=== PATIENT | female | born 1930 | race Caucasian/White ===

== ENCOUNTER 2016-12-26 10:49 | Observation (INO) | payer MEDICARE ==
[~2016-12-26] VITALS: Ht 170.2 cm; Wt 75.0 kg
[2016-12-26 10:59] VITALS: BP 235/101; PULSE 64; RESP 24; O2SAT 100
--- NOTE | 2016-12-26 11:15 | PD ---
HPI Chief Complaint: Flank/Kidney Pain Time Seen by Provider: 14:38 Travel History International Travel<30 days: No Contact w/Intl Traveler<30days: No Traveled to known affect area: No History of Present Illness HPI 86- year old female brought to the ED by EVAC complaining of right sided abdominal pain. The patient went to [facility] yesterday where she was diagnosed with a right kidney stone. She reports the pain is a 10/10, radiates to the back , and it is a sharp pain. She denies any nausea, vomiting, diarrhea, fevers, chills, or headaches. She reports that she feels more distended than usual and her last bowel movement was yesterday. She denies any drugs, alcohol, or smoking. The patient received 4 mg of morphine en route to the hospital. The patient is unsure of her medical history but states that she has HTN, and possibly HLD. PFSH Past Medical History Diminished Hearing: No Hypertension: Yes Tetanus Vaccination: > 5 Years Influenza Vaccination: Yes : 3 Para: 3 Miscarriage: 0 : 0 Past Surgical History Eye Surgery: Yes Social History Alcohol Use: No Tobacco Use: No Substance Use: No Allergies-Medications (Allergen,Severity, Reaction): Coded Allergies: No Known Allergies (Unverified , 12/26/16) Reported Meds & Prescriptions Reported Meds & Active Scripts Active Review of Systems General / Constitutional: No: Fever, Chills, Weight Gain, Weight Loss, Other Eyes: No: Diploplia, Blurred Vision, Photophobia, Drainage, Redness, Foreign Body Sensation, Pain, Tearing, Blind Spots, Visual changes, Blindness, Other HENT: No: Headaches, Vertigo, Lightheadedness, Sore Throat, Rhinitis, Rhinorrhea, Congestion, Nosebleed, Neck Stiffness, Neck Pain, Masses, Gingival Bleeding, Dental Difficulties, Ear Discharge, Earache, Other Cardiovascular: No: Chest Pain or Discomfort, Palpitations, Irregular Rhythm, Tachycardia, Diaphoresis, Syncope, Dyspnea on exertion, Varicosities, Edema, Cyanosis, Varicosities, Phlebitis, Claudication, Other Respiratory: No: Cough, Shortness of Breath, Wheezing, Sneezing, Orthopnea, Hemoptysis, Stridor, Night Sweats, Pleuritic Pain, Other Gastrointestinal: Positive: Abdominal Pain, No: Nausea, Vomiting, Diarrhea, Hematemesis, Hematochezia, Constipation, Changes in Bowel Habits, Indigestion, Dysphagia, Loss of Appetite, Other Genitourinary: No: Urgency, Frequency, Dysuria, Nocturia, Hematuria, Decreased Urinary Output, Oliguria, Hesitancy, Dribbling, Incontinence, Pelvic Pain, Flank Pain, Dyspareunia, Discharge, Dysmenorrhea, Menorrhagia, Metorrhagia, Vaginal Bleeding, Other Musculoskeletal: Positive: Myalgias (bilateral lower back pain, right worse than left ), No: Arthralgias, Limited ROM, Weakness, Cramping, Edema, Pain, Atrophy, Other Skin: No Rash, No Itching, No Dryness, No Lumps, No Hives, No Change in Pigmentation, No Change in nails, No Alopecia, No Lesions, No Breast Lumps, No Breast Tenderness, No Breast Swelling, No Other Neurologic: No: Weakness, Dizziness, Syncope, Focal Abnormalities, Coordination Problem, Tremor, Ataxia, Headache, Change in Mentation, Slurred Speech, Paresthesia, Incontinence, Seizures, Sensory Disturbance, Other Psychiatric: No: Anxiety, Depression, Suicidal Ideations, Disorder of Thought, Mood Disorder, Substance Abuse, Homicidal Ideation, Other Endocrine: No: Heat Intolerance, Cold Intolerance, Polyuria, Polydipsia, Other Hematologic/Lymphatic: No: Easy Bruising, Lymph Node Enlargement, Other Physical Exam Exam Limitations: Poor Historian Narrative GENERAL: SKIN: Warm and dry. HEAD: Atraumatic. Normocephalic. EYES: Pupils equal and round. No scleral icterus. No injection or drainage. ENT: No nasal bleeding or discharge. Mucous membranes pink and moist. Tongue is midline. No uvula deviation. NECK: Trachea midline. No JVD. CARDIOVASCULAR: Regular rate and rhythm. No murmurs, S3, S4. RESPIRATORY: No accessory muscle use. Clear to auscultation. Breath sounds equal bilaterally. GASTROINTESTINAL: CVA tenderness bilaterally, right worse than left. Abdomen tender to palpation and distended. Hepatic and splenic margins not palpable. MUSCULOSKELETAL: Extremities without clubbing, cyanosis, or edema. No obvious deformities. Full range of motion of the upper and lower extremities bilaterally. 2+ pulses bilaterally. NEUROLOGICAL: Awake and alert. No obvious cranial nerve deficits. Motor grossly within normal limits. Five out of 5 muscle strength in the arms and legs. Normal speech. PSYCHIATRIC: Appropriate mood and affect; insight and judgment normal. Data Data Last Documented VS Vital Signs Date Time Temp Pulse Resp B/P Pulse Ox O2 Delivery O2 Flow Rate FiO2 12/26/16 15:42 52 16 156/74 99 Room Air 12/26/16 12:02 98.3 Orders Complete Blood Count With Diff (12/26/16 11:02) Basic Metabolic Panel (Bmp) (12/26/16 11:02) Urinalysis - C+S If Indicated (12/26/16 11:02) Iv Access Insert/Monitor (12/26/16 11:02) Ketorolac Inj (Toradol Inj) (12/26/16 11:30) Morphine Inj (Morphine Inj) (12/26/16 11:30) Sodium Chlor 0.9% 1000 Ml Inj (Ns 1000 M (12/26/16 11:20) Lactic Acid (12/26/16 11:22) Ct Abd/Pel W Iv Contrast(Rout) (12/26/16 ) Iodixanol 320 Inj (Rad Ct) (Visipaque 32 (12/26/16 13:39) Ceftriaxone Inj (Rocephin Inj) (12/26/16 14:30) Sodium Chlor 0.9% 1000 Ml Inj (Ns 1000 M (12/26/16 14:32) Admit Order (Ed Use Only) (12/26/16 16:01) Labs Laboratory Tests Test 12/26/16 12/26/16 11:10 11:35 White Blood Count 12.9 TH/MM3 Red Blood Count 4.52 MIL/MM3 Hemoglobin 13.7 GM/DL Hematocrit 38.1 % Mean Corpuscular Volume 84.4 FL Mean Corpuscular Hemoglobin 30.2 PG Mean Corpuscular Hemoglobin 35.8 % Concent Red Cell Distribution Width 13.5 % Platelet Count 232 TH/MM3 Mean Platelet Volume 8.9 FL Neutrophils (%) (Auto) 80.5 % Lymphocytes (%) (Auto) 10.0 % Monocytes (%) (Auto) 7.9 % Eosinophils (%) (Auto) 1.0 % Basophils (%) (Auto) 0.6 % Neutrophils # (Auto) 10.4 TH/MM3 Lymphocytes # (Auto) 1.3 TH/MM3 Monocytes # (Auto) 1.0 TH/MM3 Eosinophils # (Auto) 0.1 TH/MM3 Basophils # (Auto) 0.1 TH/MM3 CBC Comment DIFF FINAL Differential Comment Sodium Level 142 MEQ/L Potassium Level 3.9 MEQ/L Chloride Level 112 MEQ/L Carbon Dioxide Level 22.5 MEQ/L Anion Gap 8 MEQ/L Blood Urea Nitrogen 16 MG/DL Creatinine 1.30 MG/DL Estimat Glomerular Filtration 39 ML/MIN Rate Random Glucose 104 MG/DL Calcium Level 8.3 MG/DL Lactic Acid Level 1.5 mmol/L MDM Medical Decision Making Medical Screen Exam Complete: Yes Emergency Medical Condition: Yes Medical Record Reviewed: Yes Interpretation(s) CBC & BMP Diagram 12/26/16 11:10 LFTs and lipase within normal limits. Last Impressions Abdomen/Pelvis CT 12/26/16 0000 Signed Impressions: Service Date/Time: Thursday, December 26, 2016 13:15 - CONCLUSION: 1. 5.6 mm calculus identified in the distal right ureterovesical junction or adjacent to the orifice within the bladder. 2. Moderate right hydronephrosis. 3. Ruptured collecting system with fluid surrounding the proximal right ureter. 4. Bilateral renal cysts. 5. Bilateral nephrolithiasis. Rosendo Monroy MD Differential Diagnosis Nephrolithiasis Obstruction Pyelonephritis UTI Narrative Course 86-year-old female that presents to the ED for evaluation of right flank pain. Patient was properly examined and was found to have signs and symptoms concerning for possible kidney stone versus obstruction. Patient his been out of good historian she follows that she went to [facility] yesterday but when family came down actually tell us that she was seen at [facility] and was seen twice for the kidney stone apparently second time the CT was negative for kidney stone so but thought that she might have passed it. She is unclear as to what the medication she is taking. Labs and imaging will be done. My attending who agrees with plan. Labs and imaging were unremarkable with exception of slightly elevated white blood cell count as well as a kidney stone on the right side with some hydronephrosis and continues to the collecting system. Case was discussed with my attending Dr. Avila who recommended I speak with Dr. Hairston. I spoke with Dr. Hairston over the phone who reviewed the patient's history as well as CT scan and labs himself and states that for the most part patient should be able to pass this. He recommends better pain control and hydration. The patient cannot tolerate pain or pain is not controlled was cannot tolerate fluids he does recommend admission if so. My attending Dr. Avila evaluated the patient with me and patient still complains of a lot of pain. Unclear of the systems new as patient is not aware of any cysts on her kidney. Family also is not aware of this. Because this patient will be admitted for pain management and further evaluation. DANIELA was paged and Dr. Bailey agrees to obs ADMISSION. Diagnosis Primary Impression: Right nephrolithiasis Additional Impression: Intractable abdominal pain Admitting Information Admitting Physician Requests: Observation Referrals: Ryan Hairston Ricardo PA Dec 26, 2016 11:15 Zelalem Anderson Dec 26, 2016 11:15 No Active Prescriptions or Reported Meds Disposition: DISCHARGE HOME Condition: Stable Zelalem Anderson Dec 26, 2016 11:15
[2016-12-26] MEDS ORDERED: SODIUM CHLOR 0.9% 1000 ML INJ 1,000 ML IV SCH ×2 (11:20→14:32)
[2016-12-26 11:26] LABS: AUTOMATED NEUTROPHIL # 10.4 TH/MM3 (1.8-7.7); BASOPHIL # 0.1 TH/MM3 (0-0.2); BASOPHIL % 0.6 % (0.0-2.0); EOSINOPHIL # 0.1 TH/MM3 (0-0.4); HEMATOCRIT 38.1 % (35.0-46.0); HEMO FLAGS DIFF FINAL; LYMPHOCYTE # 1.3 TH/MM3 (1.0-4.8); MEAN CELL VOLUME 84.4 FL (80.0-100.0); MEAN CORPUSCULAR HEMOGLOBIN 30.2 PG (27.0-34.0); MEAN CORPUSCULAR HGB CONC 35.8 % (32.0-36.0); MONO % 7.9 % (0.0-8.0); NEUT % 80.5 % (16.0-70.0); PLATELET COUNT 232 TH/MM3 (150-450); RED BLOOD COUNT 4.52 MIL/MM3 (4.00-5.30); RED CELL DISTRIBUTION WIDTH 13.5 % (11.6-17.2); WHITE BLOOD COUNT 12.9 TH/MM3 (4.0-11.0)
[2016-12-26] MEDS ORDERED: MORPHINE SULFATE 4 MG/ML INJ IV PUSH ONE (11:30)
[2016-12-26] MEDS ORDERED: KETOROLAC TROMETHAMINE 30 MG/ML (IVP) VIAL IV PUSH ONE (11:30)
[2016-12-26 11:50] LABS: BICARBONATE 22.5 MEQ/L (21.0-32.0)
[2016-12-26 12:02] VITALS: BP 179/77; PULSE 67; RESP 20; TEMP 98.3; O2SAT 98
[2016-12-26 12:18] LABS: POTASSIUM 3.9 MEQ/L (3.5-5.1)
[2016-12-26] MEDS ORDERED: IODIXANOL 320 MG/ML 50 ML VIAL (for Rad CT) IV ONE (13:39)
--- NOTE | 2016-12-26 14:19 | RADRPT ---
EXAM DATE/TIME: 12/26/2016 13:15 [place] COMPARISON: No previous studies available for comparison. INDICATIONS : Diffuse abdomen pain for three days. IV CONTRAST: 50 cc Visipaque (iodixanol) IV ORAL CONTRAST: No oral contrast ingested. RADIATION DOSE: 12.25 CTDIvol (mGy) MEDICAL HISTORY : Hypothyroidism. SURGICAL HISTORY : None. ENCOUNTER: Initial ACUITY: 3 days PAIN SCALE: 8/10 LOCATION: Bilateral lower quadrant TECHNIQUE: Volumetric scanning of the abdomen and pelvis was performed. Using automated exposure control and ad justment of the mA and/or kV according to patient size, radiation dose was kept as low as reasonably achievable to obtain optimal diagnostic quality images. DICOM format image data is available electro nically for review and comparison. FINDINGS: LOWER LUNGS: Mild airspace disease characteristic of atelectasis is seen in the bases. LIVER: Homogeneous density without lesion. There is no dilation of the biliary tree. No calcified gallston es. SPLEEN: Normal size without lesion. PANCREAS: Within normal limits. KIDNEYS: The right kidney is moderately hydronephrotic. 2 cysts are identified in the right kidney. A 13.6 cm cyst is noted off the upper pole. A 2.7 cm cyst is seen in the midpole. 4 mm calculus is evident in t he lower pole. Fluid stranding is identified along the right ureter. This extends to just below the p ancreas in the anterior pararenal space. The ureter below this level is not dilated. The left kidney contains 4 simple cysts. The largest is located off the upper pole and measures 3.6 cm. And 7.8 mm calculus is identified in the midpole on the cortical medullary junction. There is no hydronephrosis or hydroureter. ADRENAL GLANDS: Within normal limits. VASCULAR: There is no aortic aneurysm. BOWEL/MESENTERY: Numerous diverticula are seen in the colon. There are no active inflammatory changes The stomach, sma ll bowel, and colon demonstrate no acute abnormality. There is no free intraperitoneal air or fluid. ABDOMINAL WALL: Within normal limits. RETROPERITONEUM: There is no lymphadenopathy. BLADDER: A 5.6 mm calculus is identified posteriorly within the right side of the urinary bladder. It lies wit hin or adjacent to the ureteral vesicle junction. Bladder is otherwise unremarkable REPRODUCTIVE: Small myometrial mass containing calcification is evident in the left side of the uterine fundus. Adn exa are unremarkable. INGUINAL: There is no lymphadenopathy or hernia. MUSCULOSKELETAL: Postsurgical changes are noted in the lower lumbar spine following fusion. Past degenerative disc dis ease is present. CONCLUSION: 1. 5.6 mm calculus identified in the distal right ureterovesical junction or adjacent to the orifice within the bladder. 2. Moderate right hydronephrosis. 3. Ruptured collecting system with fluid surrounding the proximal right ureter. 4. Bilateral renal cysts. 5. Bilateral nephrolithiasis. Rosendo Monroy MD on December 26, 2016 at 14:06 Board Certified Radiologist. This report was verified electronically.
[2016-12-26] MEDS ORDERED: cefTRIAXone INJ 1,000 MG in SODIUM CHLORIDE 0.9% INJ 100 ML IV ONE (14:30)
[2016-12-26] MEDS ORDERED: BACT800T5 PO (14:56)
[2016-12-26] MEDS ORDERED: KETO10 PO (14:56)
[2016-12-26] MEDS ORDERED: ZOFR4TAB PO (14:56)
[2016-12-26 15:42] VITALS: BP 156/74; PULSE 52; RESP 16; O2SAT 99
--- NOTE | 2016-12-26 16:08 | PD ---
Physical Exam Narrative GENERAL: Well-nourished, well-developed patient. SKIN: Warm and dry. HEAD: Normocephalic and atraumatic. EYES: No injection or drainage. ENT: No nasal drainage noted. NECK: Supple, trachea midline. CARDIOVASCULAR: Regular rate and rhythm RESPIRATORY: No increased effort. No accessory muscle use. GASTROINTESTINAL: Abdomen soft, tender right upper and lower quadrant, nondistended. NEUROLOGICAL: Awake. Moves all extremities. Normal speech. Data Data Last Documented VS Vital Signs Date Time Temp Pulse Resp B/P Pulse Ox O2 Delivery O2 Flow Rate FiO2 12/26/16 15:42 52 16 156/74 99 Room Air 12/26/16 12:02 98.3 Orders Complete Blood Count With Diff (12/26/16 11:02) Basic Metabolic Panel (Bmp) (12/26/16 11:02) Urinalysis - C+S If Indicated (12/26/16 11:02) Iv Access Insert/Monitor (12/26/16 11:02) Ketorolac Inj (Toradol Inj) (12/26/16 11:30) Morphine Inj (Morphine Inj) (12/26/16 11:30) Sodium Chlor 0.9% 1000 Ml Inj (Ns 1000 M (12/26/16 11:20) Lactic Acid (12/26/16 11:22) Ct Abd/Pel W Iv Contrast(Rout) (12/26/16 ) Iodixanol 320 Inj (Rad Ct) (Visipaque 32 (12/26/16 13:39) Ceftriaxone Inj (Rocephin Inj) (12/26/16 14:30) Sodium Chlor 0.9% 1000 Ml Inj (Ns 1000 M (12/26/16 14:32) Admit Order (Ed Use Only) (12/26/16 16:01) Labs Laboratory Tests Test 12/26/16 12/26/16 11:10 11:35 White Blood Count 12.9 TH/MM3 Red Blood Count 4.52 MIL/MM3 Hemoglobin 13.7 GM/DL Hematocrit 38.1 % Mean Corpuscular Volume 84.4 FL Mean Corpuscular Hemoglobin 30.2 PG Mean Corpuscular Hemoglobin 35.8 % Concent Red Cell Distribution Width 13.5 % Platelet Count 232 TH/MM3 Mean Platelet Volume 8.9 FL Neutrophils (%) (Auto) 80.5 % Lymphocytes (%) (Auto) 10.0 % Monocytes (%) (Auto) 7.9 % Eosinophils (%) (Auto) 1.0 % Basophils (%) (Auto) 0.6 % Neutrophils # (Auto) 10.4 TH/MM3 Lymphocytes # (Auto) 1.3 TH/MM3 Monocytes # (Auto) 1.0 TH/MM3 Eosinophils # (Auto) 0.1 TH/MM3 Basophils # (Auto) 0.1 TH/MM3 CBC Comment DIFF FINAL Differential Comment Sodium Level 142 MEQ/L Potassium Level 3.9 MEQ/L Chloride Level 112 MEQ/L Carbon Dioxide Level 22.5 MEQ/L Anion Gap 8 MEQ/L Blood Urea Nitrogen 16 MG/DL Creatinine 1.30 MG/DL Estimat Glomerular Filtration 39 ML/MIN Rate Random Glucose 104 MG/DL Calcium Level 8.3 MG/DL Lactic Acid Level 1.5 mmol/L MDM Supervised Visit with PONCHO: Yes Interpretation(s) CBC & BMP Diagram 12/26/16 11:10 Last 24 hours Impressions Abdomen/Pelvis CT 12/26/16 0000 Signed Impressions: Service Date/Time: Monday, December 26, 2016 13:15 - CONCLUSION: 1. 5.6 mm calculus identified in the distal right ureterovesical junction or adjacent to the orifice within the bladder. 2. Moderate right hydronephrosis. 3. Ruptured collecting system with fluid surrounding the proximal right ureter. 4. Bilateral renal cysts. 5. Bilateral nephrolithiasis. Rosendo Monroy MD Narrative Course I, Dr. lundy, have reviewed the advance practice practitioner's documentation and am in agreement, met with the patient face to face, made the diagnosis, and the medical decision making was done by me. *My assessment and Findings: 86-year-old female presents with right sided abdominal pain. CT shows ureteral stone just at UVJ versus just into bladder with associated [place] and large cyst versus rupture of collecting system. Patient will be admitted for pain control and will work on obtaining records for comparison after discussion with urology Diagnosis Primary Impression: Right nephrolithiasis Additional Impression: Intractable abdominal pain Rosita Lundy MD Dec 26, 2016 16:07
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
[2016-12-26] MEDS: SODIUM CHLOR 0.45% 1000 ML INJ 1,000 ML IV SCH (17:33)
[2016-12-26] MEDS ORDERED: traMADol/ACETAMINOPHEN 37.5/325 1 TAB PO PRN (19:15)
[2016-12-26] MEDS ORDERED: PILL SPLITTER OTHER PRN (19:30)
[2016-12-26 20:29] VITALS: BP 173/77; PULSE 75; RESP 20; TEMP 97.9; O2SAT 98
[2016-12-26] MEDS ORDERED: amLODIPine BESYLATE 5 MG TAB PO ONE (20:45)
[2016-12-26 22:31] VITALS: PULSE 56
[2016-12-26 23:19] VITALS: BP 157/72; PULSE 61; RESP 18; TEMP 97.5; O2SAT 97
[2016-12-26 23:53] LABS: BLOOD, URINE MOD (NEG); COMMENT (UR) CULTURE INDICATED; CULTURE IF INDICATED CULTURE INDICATED; GLUCOSE,URINE NEG (NEG); KETONE, URINE NEG (NEG); MUCUS URINE FEW /lpf (OCC); NITRITE,URINE NEG (NEG); SQUAMOUS EPITHELIAL CELL URINE 3 /hpf (0-5); TRANSITIONAL EPI CELLS, URINE <1 /hpf; URINE COLOR YELLOW (YELLW/STRAW)
[2016-12-27] VITALS (9 sets, daily range): BP systolic 139–189; BP diastolic 40–81; PULSE 53–76; RESP 17–20; TEMP 96.8–98.2; O2SAT 96–98
[2016-12-27] MEDS: SODIUM CHLOR 0.45% 1000 ML INJ 1,000 ML IV SCH ×2 (05:33→14:58)
[2016-12-27 07:08] LABS: POTASSIUM 3.4 MEQ/L (3.5-5.1)
[2016-12-27] MEDS ORDERED: LEVOFLOXACIN 500 MG PREMIX INJ 100 ML IV ONE (08:00)
[2016-12-27] MEDS ORDERED: POTASSIUM CHLORIDE 10 MEQ CONTROLLED RELEASE TAB PO ONE ×2 (08:30→10:45)
[2016-12-27] MEDS ORDERED: amLODIPine BESYLATE 5 MG TAB PO SCH (09:00)
[2016-12-27] MEDS ORDERED: PNEUMOCOCCAL POLYVALENT INJ 25 MCG/0.5 ML SYR IM ONE (10:00)
--- NOTE | 2016-12-27 10:48 | HHI.PR ---
Subjective Remarks patient voiding spontaneously, no dysuria or urgency no flank pain Objective Vitals Vital Signs Date Time Temp Pulse Resp B/P Pulse Ox O2 Delivery O2 Flow Rate FiO2 12/27/16 08:50 96.8 53 20 160/78 96 12/27/16 07:15 57 12/27/16 04:44 97.4 60 20 154/71 97 12/27/16 04:10 76 12/27/16 00:02 56 12/26/16 23:19 97.5 61 18 157/72 97 12/26/16 22:31 56 12/26/16 20:29 97.9 75 20 173/77 98 12/26/16 15:42 52 16 156/74 99 Room Air 12/26/16 12:58 20 12/26/16 12:05 20 12/26/16 12:02 98.3 67 20 179/77 98 Room Air 12/26/16 10:59 64 24 235/101 100 I/O 12/26/16 12/26/16 12/26/16 12/27/16 12/27/16 12/27/16 07:00 15:00 23:00 07:00 15:00 23:00 Intake Total 400 ml Balance 400 ml Intake Oral 400 ml # Voids 1 2 Result Diagram: 12/26/16 1110 12/27/16 0531 Imaging Last Impressions Abdomen/Pelvis CT 12/26/16 0000 Signed Impressions: Service Date/Time: Monday, December 26, 2016 13:15 - CONCLUSION: 1. 5.6 mm calculus identified in the distal right ureterovesical junction or adjacent to the orifice within the bladder. 2. Moderate right hydronephrosis. 3. Ruptured collecting system with fluid surrounding the proximal right ureter. 4. Bilateral renal cysts. 5. Bilateral nephrolithiasis. Rosendo Monroy MD Objective Remarks awake and alert, oriented x 3, NAD anicteric lungs clear regular rhythm abodmen soft, nontender, nl CVA tenderness extremities no edema A/P Assessment and Plan 86 yo female with a PMHX significant for HTN who presents to [facility] with complaints of right sided flank pain found to have 5.6mm calculus distal right ureterovesical junction and moderate hydronephrosis. Obstructive Uropathy - right UPJ stone 5.6 mm with marked right hydronephrosis by history - recurrent- per patient -does not recall passing out stones clinically though Imaging study shows distal right UPJ stone with hydronephrosis and ruptured collecting duct system pain management prn strain urine- and send stone for analysis if passed continue IV fluids Urology consult- evaluate for stent placement- with above findings- with increasing creatinine TORITO secondary to Obstructive nephropathy Hypokalemia avoid nephrotoxic agents creatinine slightly up- continue IVF with KCL am labs to monitor trend UTI- Leukocytosis ff final C and S on Levaquin am labs to monitor Hypertension started on amlodipine Monitor BP. pain control Hyperuricemia start allopurinol 100 mg po daily DVT prophylaxis bilateral SCD/ARIELLE Adeola Cordon MD Dec 27, 2016 10:48
[2016-12-27] MEDS: D5-NS + KCL 20 MEQ INJ 1,000 ML IV SCH (16:20)
[2016-12-28 00:18] VITALS: BP 181/80; PULSE 65; RESP 17
[2016-12-28] MEDS: D5-NS + KCL 20 MEQ INJ 1,000 ML IV SCH ×2 (00:26→08:00)
[2016-12-28] MEDS ORDERED: amLODIPine BESYLATE 5 MG TAB PO ONE (00:45)
[2016-12-28 04:01] VITALS: BP 169/71; PULSE 63; RESP 17; TEMP 97.9
[2016-12-28 04:41] VITALS: O2SAT 98
[2016-12-28] MEDS ORDERED: amLODIPine BESYLATE 5 MG TAB PO SCH (08:00)
[2016-12-28] MEDS ORDERED: LEVOFLOXACIN 250 MG PREMIX INJ 50 ML IV SCH (08:00)
[2016-12-28 08:38] VITALS: BP 183/79; PULSE 63; RESP 20; TEMP 97.8; O2SAT 96
[2016-12-28] MEDS ORDERED: ALLOPURINOL 100 MG TAB PO SCH (09:00)
--- NOTE | 2016-12-28 10:00 | MB ---
cc: YOLIS HORNE DATE OF CONSULTATION: 12/28/2016 HISTORY OF PRESENT ILLNESS Ms. Recinos is a pleasant 86-year-old female who presents with right-sided flank pain. She was seen a few days ago in another hospital and she was told that she had a UVJ stone on the right side which would probably pass on its own. CT scan was done in our emergency room demonstrating 5-6 mm calculus at the distal right ureteral junction with moderate hydronephrosis. Her pain was moderate at the time and she had no fever or chills. She denies any prior past history of stones. PAST MEDICAL HISTORY Her medical history is notable for hypertension. PAST SURGICAL HISTORY Noted for plastic facial reconstructive surgery in the past. ALLERGIES She denies any allergies. FAMILY HISTORY Family history is notable for heart disease on her father's side. SOCIAL HISTORY She drinks socially. Denies any drug use and did smoke in the past. REVIEW OF SYSTEMS She denies chest pain. She denies shortness of breath. She denies fever. She denies chills. She does note intermittent right flank pain. She denies diarrhea or constipation. She denies any bleeding disorders. She denies any gait disturbances. Denies any skin lesions or rashes. Denies any psychological history. Denies fever or chills. All other systems reviewed and are negative. PHYSICAL EXAMINATION VITAL SIGNS: Presently temperature is 97.8, heart rate 63, respiratory rate 20, 183/79 is her blood pressure. GENERAL: She is a well-developed, well-nourished 86-year-old female in no acute distress. HEENT: Normocephalic, atraumatic. Pupils equal, round, reactive to light. Extraocular movements intact. NECK: Neck is supple. HEART: Regular rate and rhythm. LUNGS: Clear. ABDOMEN: Soft, nontender, nondistended. There is mild right CVA tenderness noted. Normal female external genitalia. EXTREMITIES: Show no cyanosis, clubbing or edema. NEURO: CNII-X11 intact LABORATORY DATA White count 12.9, hemoglobin 13.7, hematocrit 38.1, platelet count 232. Sodium 143, potassium 3.4, chloride 113, CO2 24, BUN of 17, creatinine 1.5, glucose of 89. Urinalysis shows noted for red cells and 20 white cells. IMAGING STUDIES Imaging studies show a 5-6 mm distal right ureteral calculus with moderate right hydronephrosis and some fluid around the proximal ureter suggestive of a possible forniceal rupture. ASSESSMENT A 86-year-old female with a 5-6 mm distal right UVJ stone with mild to moderate hydronephrosis. Recommend IV fluids and IV hydration for now. Strain all urine. Stone this size should pass on its own with hydration and observation. No need for intervention at this time. Thank you for the consult and allowing me to participate in the care of this patient. Yolis DE LEON /9:18 AM /9:46 AM EDWIN
[2016-12-28 10:50] LABS: ALKALINE PHOSPHATASE 82 U/L (45-117); ALT (GPT) 24 U/L (10-53); ANION GAP 8 MEQ/L (5-15); AST (GOT) 16 U/L (15-37); BICARBONATE 24.6 MEQ/L (21.0-32.0); BLOOD UREA NITROGEN 8 MG/DL (7-18); CHLORIDE 110 MEQ/L (98-107); GLOMERULAR FILTRATION RATE 60 ML/MIN (>89); POTASSIUM 3.6 MEQ/L (3.5-5.1); SODIUM (NA) 143 MEQ/L (136-145); TOTAL BILIRUBIN ADULT 1.1 MG/DL (0.2-1.0)
--- NOTE | 2016-12-28 12:37 | HHI.PR ---
Subjective Remarks doing great no nausea vomiting or flank pain voiding spontaenoulsy with no difficulty felt like she passed some sediments in the urine Objective Vitals Vital Signs Date Time Temp Pulse Resp B/P Pulse Ox O2 Delivery O2 Flow Rate FiO2 12/28/16 08:38 97.8 63 20 183/79 96 12/28/16 04:41 98 12/28/16 04:01 97.9 63 17 169/71 12/28/16 00:18 65 17 181/80 12/27/16 23:56 98.2 63 17 189/81 97 12/27/16 21:20 68 139/73 12/27/16 20:04 98.1 68 18 179/78 98 Result Diagram: 12/26/16 1110 12/28/16 1001 Imaging Last Impressions Abdomen/Pelvis CT 12/26/16 0000 Signed Impressions: Service Date/Time: Monday, December 26, 2016 13:15 - CONCLUSION: 1. 5.6 mm calculus identified in the distal right ureterovesical junction or adjacent to the orifice within the bladder. 2. Moderate right hydronephrosis. 3. Ruptured collecting system with fluid surrounding the proximal right ureter. 4. Bilateral renal cysts. 5. Bilateral nephrolithiasis. Rosendo Monroy MD Objective Remarks awake and alert, oriented x 3, NAD anicteric lungs clear regular rhythm abdomen soft, nontender, nl CVA tenderness extremities no edema gait steady A/P Assessment and Plan 86 yo female with a PMHX significant for HTN who presents to [facility] with complaints of right sided flank pain found to have 5.6mm calculus distal right ureterovesical junction and moderate hydronephrosis. Obstructive Uropathy - right UPJ stone 5.6 mm with marked right hydronephrosis by history - recurrent- per patient -does not recall passing out stones clinically though Imaging study shows distal right UPJ stone with hydronephrosis and ruptured collecting duct system pain management prn strain urine- and send stone for analysis if passed appreciate urology consult- no need for surgical intervention advised to conitnue adequate hydration OP ff up with PCP- to set up with one- with OP urology ff up in [place] [facility] secondary to Obstructive nephropathy Hypokalemia avoid nephrotoxic agents resolved- creatinine improved advised adequate hydration Pyuria- no growth - DC antibiotics Hypertension started on amlodipine 5 mg po daily- OP ff up Monitor BP. Hyperuricemia start allopurinol 100 mg po daily advise on low uric acid diet DVT prophylaxis bilateral SCD/ARIELLE hose DC home today. d/w patient and son OP ff up with PCP set up with one and possible referral to urology Diet low sodium low uric acid diet activity- weight bearing as tolerated Meds - as above DC home today OP ff up with PCP - set up and Urology referral as needed Adeola Bailey MD Dec 28, 2016 12:37
[2016-12-28] MEDS ORDERED: AMLO5 PO (12:42)
[2016-12-28] MEDS ORDERED: ALLO100 PO (12:42)
== END 2016-12-28 13:14 | disposition home or self-care (01) ==
LOC: NEPE 10:49 → NEDA 16:02 → NEPGCP 18:44
PROVIDERS: ADMIT Internal Medicine; ATTEND Internal Medicine
DX: N13.2 Hydronephrosis with renal and ureteral calculous obstruction (principal); I10 Essential (primary) hypertension; N13.8 Other obstructive and reflux uropathy; N17.9 Acute kidney failure, unspecified; E87.6 Hypokalemia; N39.0 Urinary tract infection, site not specified; E79.0 Hyperuricemia without signs of inflammatory arthritis and tophaceous disease; M79.1 Myalgia; N28.1 Cyst of kidney, acquired; M51.36 Other intervertebral disc degeneration, lumbar region; Z87.891 Personal history of nicotine dependence
CPT/HCPCS: 74177; 80048; 80053; 81001; 83605; 84550; 85025; 87086; 96361; 96365; 96366; 96375; 96376; 97162; 99285; G0378; G8987; G8988; J0696; J1885; J1956; J2270; J3480; J7030; Q9967